=== PATIENT | female | born 1970 | race Caucasian/White ===

== ENCOUNTER 2024-10-17 12:05 | Emergency (ER) | payer OTHER, SELFPAY ==
[2024-10-17 12:10] VITALS: BP 123/83; PULSE 75; TEMP 36.6; O2SAT 97; BMI 26.6
[2024-10-17 12:23] VITALS: O2SAT 99
--- NOTE | 2024-10-17 12:35 | ED.GENADUL1 ---
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 She is somewhat not very forthcoming with providing much history but she endorses this was low impact at approximately 4 to 5 mph. She denies hitting her head or any LOC. She endorses since then she has had pain to the lateral side of her left neck and mid upper back. Endorses at baseline she does have some paresthesias to her upper extremities that she attributes to carpal tunnel syndrome. She denies any new injuries to her extremities, weakness, loss of movement. She additionally denies any saddle anesthesia or concerns with bowel/bladder function. She mention she has intermittently been taking Tylenol and ibuprofen. Related Data Home Medications ?Medication ?Instructions ?Recorded ?Confirmed No Known Home Medications 10/17/24 10/17/24 Allergies Allergy/AdvReac Type Severity Reaction Status Date / Time Penicillins Allergy Severe Hives Verified 10/17/24 12:14 Opioid HPI Opioid Management Most Recent Opioid Data: Last Pain Scale 8 Today, 12:22 Review of Systems ROS Status of ROS 10 or more systems reviewed and unremarkable except as noted in history and below PFSH PFSH Social History Little interest or pleasure in doing things: not at all Feeling down, depressed, or hopeless: not at all Exam Narrative Exam Narrative: Constituational: Awake/ alert, no apparent distress, well hydrated HENMT: normocephalic, external ears normal, moist oral mucous membranes and oropharynx normal Eyes: EOMI and conjunctivae normal Neck: ROM intact, mild discomfort to lateral left cervical region, otherwise normal inspection of neck, no vertebral tenderness Chest: inspection of chest normal Respiratory: Normal respiratory effort, clear to auscultation bilaterally Cardio: regular rate and regular rhythm GI: soft to palpation and non-tender Back: + Mild discomfort with palpation over mid/upper paravertebral thoracic region, otherwise no vertebral tenderness and normal inspection of back with ROM intact MSK: ROM intact, +NVI Skin: no rashes or petechiae Neuro: no focal deficits Psych: mental status grossly normal Constitutional Vital Signs, click to edit/add: Last Vital Signs Temp 98 F 10/17/24 12:10 Pulse 75 10/17/24 12:10 Resp 16 10/17/24 12:10 BP 123/83 10/17/24 12:10 Pulse Ox 99 10/17/24 12:23 O2 Del Method Room Air 10/17/24 12:23 Course Vital Signs Vital signs: Vital Signs Temperature 98 F 10/17/24 12:10 Pulse Rate 75 10/17/24 12:10 Respiratory Rate 16 10/17/24 12:10 Blood Pressure 123/83 10/17/24 12:10 Pulse Oximetry 97 10/17/24 12:10 Oxygen Delivery Method Room Air 10/17/24 12:10 Temperature 98 F 10/17/24 12:10 Pulse Rate 75 10/17/24 12:10 Respiratory Rate 16 10/17/24 12:10 Blood Pressure 123/83 10/17/24 12:10 Pulse Oximetry 99 10/17/24 12:23 Oxygen Delivery Method Room Air 10/17/24 12:23 Medical Decision Making MDM Narrative Medical decision making narrative: Patient is a well-appearing 54-year-old female who presents to the emergency department today for evaluation concerns for injuries after colliding with another forklift at work yesterday. Initial examination vital signs overall stable. Patient's pain does seem somewhat malingering as she is fully dressed with undergarments on and her hair in a high bun on her head however did inform nursing that she is unwilling to get undressed for x-ray imaging including removing her brassiere due to her pain. On exam she does not appear to be in any acute distress and overall pain appreciated on exam is very minimal and mild. No concerning neurovascular or motor findings on exam. Pain of cervical and thoracic spine without critical findings per ER interpretation and reviewed with the ER attending physician Dr. Lazo. Discussed this with the patient including recommendations for supportive care of possible cervical and thoracic strains. No evidence of acute radiculopathy. Advised on follow-up with patient's primary care provider and occupational health for reevaluation. Discussed signs and symptoms of any worsening condition and when to consider reevaluation by the emergency department. Patient verbalized an understanding of this and is agreeable with the plan to be discharged home. Medical Records Medical records reviewed: Yes I reviewed the patient's medical records Imaging Data XR neck: Attestation: I personally reviewed and interpreted this imaging study as follows: My impression: Degenerative changes, no fracture XR thoracic spine: Attestation: I personally reviewed and interpreted this imaging study as follows: My impression: Degenerative changes, no fracture Discharge Plan Discharge Chief Complaint: Back Pain/Injury Clinical Impression: Cervical muscle strain, Strain of thoracic region Patient Disposition: Home, Self-Care Prescriptions / Home Meds: No Action No Known Home Medications Print Language: Lithuanian Instructions: Cervical Strain (DC), Muscle Strain (DC) Additional Instructions: May alternate Tylenol and ibuprofen as needed for any pain. Rest, ice any sore areas. Please follow-up with occupational health for reevaluation as discussed. Referrals: CINDY ABBOTT [Primary Care Provider, Family Practice] - 1 week
== END 2024-10-17 15:15 | disposition home or self-care (01) ==
PROVIDERS: Emergency Provider Emergency Medicine; PCP Family Medicine
DX: S16.1XXA Strain of muscle, fascia and tendon at neck level, initial encounter (principal); S29.012A Strain of muscle and tendon of back wall of thorax, initial encounter; V83.5XXA Driver of special industrial vehicle injured in nontraffic accident, initial encounter
CPT/HCPCS: 72040; 72072; 99283

== ENCOUNTER 2025-03-03 07:58 | Emergency (ER) | payer OTHER, SELFPAY ==
--- OUTSIDE RECORDS SUMMARY | 2025-02-24 08:39 | XMS_ITS | Continuity of Care Document ---
Author Organization [facility] Address [address] [place] [address] Phone Care Team Providers Care Music Mixer Name Role Phone Theodora Camacho APRN Attending Provider NON STAFF Primary Care Provider Unavailabl e Care Teams Patient Care Team Team Status: Active Member Role Status Dates NON STAFF Primary Care Provider Active Patient Care Team Team Status: Inactive Member Role Status Dates Theodora Camacho APRN Attending Provider Active Start: February 24, 2025 End: February 24, 2025NON STAFFPrimary Care ProviderActiveStart: February 24, 2025 End: February 24, 2025 Chief Complaint and Reason for Visit Chief Complaint Admit Date sore throat, body aches, chills February 24, 2025 11:51am Allergies, Adverse Reactions, Alerts Allergen Type Severity Reaction Last Updated Verified Status Penicillins Allergy Unknown Unknown Reaction February 24, 2025 12:02pm Yes Active Social History Smoking Status Status Start Date End Date Date of Observa tion Never smoked tobacco (finding) February 24, 2025 12:04pm Observation Status Observation Response Date of Response Legal Sex [facility] (finding) [facility] Family History Relationship Condition Age at Onset Recorded Date/T wilda father Chronic obstructive pulmonary disease Unk nown Cerebrovascular accident (CVA)Unknown Medications No known medications Vital Signs Vital Reading Result Reference Range Collection Date/Time Height 66 [in_i] February 24, 2025 12:19ihSgvfhj38.71 [facility] 2024 12:08pmBody Bligbdlcvlz40.8 [degF]97.6-99.0October 2024 12:08pmHeart Rate72 /sbd81-691 February 24, 2025 12:08pmRespiratory rate18 /lhl29-89Eynxggc 2024 12:08pm Oxygen saturation by Pulse %95-100October 2024 12:08pmBP Dyfczbwy824 mm[Hg]100-140[facility] 2024 12:08pmBP Seciewnjq95 mm[Hg]60-100 February 24, 2025 12:08pmBMI (Body Mass Index)32.3 kg/i7Fdkezxd 2024 12:08pm Advance Directives Advance Directive Response Recorded Date/ Time Advance Directives No February 24, 2025 11:49am Insurance Providers Guarantor Rehana Obregon Address [address] [facility] [address]Uqxgwdx Info.Home Phone: Payer Policy Id Subscriber's Name Subscriber Id Effectiv e Date Expiration Date [employer] [id number] Rehana Obregon [id number] Encounters Encounter Location(s) Arrival/Admit Date Discharge/Depart Date Provider(s) Departed Physician/Prov ider Office Visit -[facility] February 24, 2025 11:51am February 24, 2025 12:37pm Yen Lala MACHINE CLOTHING MAN Plan of Treatment Future Tests Future scheduled test information is unavailable Pending Tests Pending diagnostic test information is unavailable Future Visits Future appointment information is unavailable Referrals to Other Providers Referral information is unavailable Future Procedures Procedure Name Ordered Date Scheduled Date AMB POC Quick Strep February 24, 2025 12:07pm Future Medications Future medication information is unavailable Patient Instructions Patient instructions are unavailable
--- OUTSIDE RECORDS SUMMARY | 2025-03-03 08:03 | XMS_ITS | Clinical Summary ---
Author Organization [employer] [facility] tem Address [id number] [place] [address] Care Team Providers Care Sustainable Agriculture Specialist Name Role Phone No Pcp, No Pcp Primary Care Provider Unavailabl e Allergies Active AllergyReactionsCriticalityNoted DateCommentsPenicillin G Sodium 11/20/2022 Other Reaction(s): Unknown Medications No known medications Social History Tobacco UseTypesPacks/DayYears UsedDateSmoking Tobacco: Never AssessedChildcare AnswerDate OfjtoftqZhwfeirqyLuvesci49/12/2019EmploymentAnswerDate Recorded AbuupazprcTwtowsw93/12/2019Hunger ScreeningAnswerDate RecordedWithin the past 12 months we worried whether our food would run out before we got money to buy more.Never True08/03/2023Within the past 12 months the food we bought just didn't last and we didn't have money to get more.Never True08/03/2023 CommentsNoSex and Gender InformationValueDate RecordedSex Assigned at BirthNot on fileLegal NvnRimyxw55/06/2015 11:43 AM EDTGender IdentityNot on fileSexual OrientationNot on file Last Filed Vital Signs Vital SignReadingTime TakenCommentsBlood Sscxpfnx892/8103 3:17 AM EDT Ayajy9317 3:17 AM WNWEqgrygsntrj93 ??C (98.6 ??F)08/03/2023 3:17 AM EDT Respiratory Qytq071708/03/2023 3:17 AM EDTOxygen Geagedjhnr63%08/03/2023 3:17 AM EDTInhaled Oxygen Concentration--Stputi26 kg (205 lb)08/03/2023 3:17 AM EDT Giddof469.6 cm (5' 6 )08/03/2023 3:17 AM EDTBody Mass Index33.0908/03/2023 3:17 AM EDT Plan of Treatment Not on file Medical Devices Not on file Insurance Care Teams Team MemberRelationshipSpecialtyStart DateEnd Date No Pcp, [place] [id number] PCP - GeneralFadely Medicine08/03/23
--- OUTSIDE RECORDS SUMMARY | 2025-03-03 08:03 | XMS_ITS | Clinical Summary ---
Author Organization [facility] Address [address] [place] [address] Care Team Providers Care Oyster Shipper Name Role Phone Jason Waite MD Primary Care Provider [phone] Allergies Active AllergyReactionsCriticalityNoted DateCommentsPenicillin G Sodium 11/20/2022 Other Reaction(s): Unknown Medications No known medications Family History Medical HistoryRelationNameCommentsBreast cancerMother's SisterBreast cancer SisterCervical cancerSisterRelationNameStatusCommentsMother's SisterSister Social History Tobacco UseTypesPacks/DayYears UsedDateSmoking Tobacco: NeverSmokeless Tobacco: Never Tobacco Cessation:Counseling Given: Not Answered Alcohol UseStandard Drinks/WeekCommentsNot Currently0 (1 standard drink = 0.6 oz pure alcohol)CommentsUnknownSex and Gender InformationValueDate Recorded Sex Assigned at BirthNot on fileLegal PizLbadgh12/15/2023 8:23 PM EDTGender IdentityNot on fileSexual OrientationNot on file Last Filed Vital Signs Vital SignReadingTime TakenCommentsBlood Maulcdgs519/8207 2:35 PM EDT Pulse--Temperature--Respiratory Rate--Oxygen Saturation--Inhaled Oxygen Concentration--Bloiyb85.7 kg (189 lb)11/20/2022 2:35 PM SXLLbxdbx248.3 cm (5' 3.5 )11/20/2022 2:35 PM EDTBody Mass Index32.9507 2:35 PM EDT Plan of Treatment Not on file Insurance Care Teams Team MemberRelationshipSpecialtyStart DateEnd Jason Waite MD PCP - GeneralFamily Medicine11/20/22
[2025-03-03 08:05] VITALS: BP 131/83; PULSE 64; TEMP 36.8; O2SAT 100; BMI 32.3
--- NOTE | 2025-03-03 08:18 | XR_ITS ---
[place] [id number] Patient Name: LISSET CONWAY MRN: [id number] date: 1970 Sex: F Assigned Patient Location: ER Current Patient Location: ED.MAIN Accession/Order Number: [id number] Exam Date: 03/03/2025 08:28 Report Date: 03/03/2025 08:57 At the request of: OSWALDO WAGNER MD Procedure: XR chest 1V PORTABLE AP ERECT CHEST 0815 hours CLINICAL HISTORY: Cough and sore throat for several days COMPARISON: Thoracic spine 10/17/2024 The heart is within normal limits. There is no vascular congestion. No consolidation is seen. There is no effusion or pneumothorax. The osseous structures are intact. There is slight dextroscoliotic curvature and tiny endplate spurs. XR/XR chest 1V IMPRESSION: NO ACUTE FINDINGS Impression dictated by: Adela Valencia M.D. 03/03/2025 8:57 AM Dictation Location: [place] [address] Electronically authenticated by: [id number] Y Date: 03/03/2025 08:57
--- NOTE | 2025-03-03 08:18 | ED.GENADUL1 ---
HPI HPI - General Adult General Chief complaint: Upper Respiratory Infection Stated complaint: SORE THROAT Time Seen by Provider: 03/03/25 08:00 Source: patient Mode of arrival: walk-in History of Present Illness HPI narrative: 54-year-old female presented to the emergency department for a cough. She feels like it is in her throat. 10 days ago her boyfriend was cutting pavers and she had inhaled some of the dust. She was not wearing a mask. Her cough is nonproductive. No hemoptysis or fever. She went to urgent care and they told her she had haur-yrza-jtm-mouth disease. She has not had a rash on her hands or feet. Related Data Previous Rx's ?Medication ?Instructions ?Recorded benzonatate 100 mg capsule 100 mg PO TID PRN cough #20 caps 03/03/25 prednisone 10 mg tablet See Rx Instructions .Route 03/03/25 .COMPLEX #30 tabs Allergies Allergy/AdvReac Type Severity Reaction Status Date / Time Penicillins Allergy Severe Hives Verified 03/03/25 08:05 Opioid HPI Opioid Management Most Recent Opioid Data: Last Pain Scale 10 Today, 08:18 Review of Systems ROS Narrative A ten point review of systems is negative except as noted above. PFSH PFSH Social History Little interest or pleasure in doing things: not at all Feeling down, depressed, or hopeless: not at all Exam Narrative Exam Narrative: Nurses note and vital signs reviewed General:The patient appears well and in no apparent distress.Patient is resting comfortably on cart. Skin:Warm, dry, no pallor noted.There is no rash noted. Head:Normocephalic, atraumatic Eye: Normal conjunctiva, no drainage Ears, Nose, Mouth, and Throat: oral mucosa is moist. Nares patent. No pharyngeal erythema. No exudate Cardiovascular:Regular Rate and Rhythm Respiratory:Patient is in no distress, no accessory muscle use, lungs are clear to auscultation, no wheezing, rales or rhonchi Back:non-tender GI: Soft and nontender Musculoskeletal: No joint swelling Neurological: Awake and alert Psychiatric:Cooperative Constitutional Vital Signs, click to edit/add: Last Vital Signs Temp 98.3 F 03/03/25 08:05 Pulse 64 03/03/25 08:05 Resp 16 03/03/25 08:05 BP 131/83 03/03/25 08:05 Pulse Ox 100 03/03/25 08:05 O2 Del Method Room Air 03/03/25 08:05 Course Vital Signs Vital signs: Vital Signs Temperature 98.3 F 03/03/25 08:05 Pulse Rate 64 03/03/25 08:05 Respiratory Rate 16 03/03/25 08:05 Blood Pressure 131/83 03/03/25 08:05 Pulse Oximetry 100 03/03/25 08:05 Oxygen Delivery Method Room Air 03/03/25 08:05 Temperature 98.3 F 03/03/25 08:05 Pulse Rate 64 03/03/25 08:05 Respiratory Rate 16 03/03/25 08:05 Blood Pressure 131/83 03/03/25 08:05 Pulse Oximetry 100 03/03/25 08:05 Oxygen Delivery Method Room Air 03/03/25 08:05 Medical Decision Making MDM Narrative Medical decision making narrative: Strep test is negative. She was offered COVID and influenza test but does not feel that she needs them. Chest x-ray my interpretation showed no acute findings. Should be placed on prednisone and Tessalon. I suspect her symptoms may be due to the inhaled dust that she experienced just before the symptoms started. Treatment diagnosis and follow-up were discussed with the patient. Differential Diagnosis Differential Diagnosis: Strep throat, pneumonia, viral URI Lab Data Lab results reviewed: Yes I reviewed the patient's lab results Labs: Lab Results 03/03/25 Range/Units 08:16 Streptococcus Screen Negative Imaging Data Chest x-ray: My impression: No acute findings Discharge Plan Discharge Chief Complaint: Upper Respiratory Infection Clinical Impression: Pneumonitis Patient Disposition: Home, Self-Care Time of Disposition Decision: 08:49 Condition: Good Mode of Transportation: Private Vehicle Prescriptions / Home Meds: New benzonatate 100 mg capsule 100 mg PO TID PRN (Reason: cough) Qty: 20 0RF prednisone 10 mg tablet See Rx Instructions .ROUTE .COMPLEX Qty: 30 0RF Rx Instructions: 4 by mouth daily for three days then 3 by mouth daily for three days then 2 by mouth daily for three days then 1 by mouth daily for three days Print Language: Greenlandic Instructions: How Your Lungs Work (ED) Referrals: Physician,Non-Staff, MD [Primary Care Provider] - 1 week
== END 2025-03-03 09:07 | disposition home or self-care (01) ==
PROVIDERS: Emergency Provider Emergency Medicine
DX: J98.4 Other disorders of lung (principal)
CPT/HCPCS: 71045; 87070; 87880; 99284

== ENCOUNTER 2025-04-16 12:25 | Outpatient (OUT) | payer OTHER, SELFPAY ==
--- OUTSIDE RECORDS SUMMARY | 2025-04-15 07:02 | XMS_ITS | Continuity of Care Document ---
Author Organization [facility] Address [address] [place] [address] Phone Care Team Providers Care Manager Managing Name Role Phone Theodora Camacho APRN Attending Provider NON STAFF Primary Care Provider Unavailabl e Radha, Cheryl DO Primary Care Provider [phone] Radha, Cheryl DO Attending Provider Care Teams Patient Care Team Team Status: Active Member Role/Relationship Status Dates Cheryl Garcia DO Primary Care Provider Active Visit Care Team Team Status: Inactive Member Role/Relationship Status Dates Theodora Camacho APRN Attending Provider Active Start: February 24, 2025 End: February 24, 2025NON STAFFPrimary Care ProviderActiveStart: February 24, 2025 End: February 24, 2025 Patient Care Team Team Status: Inactive Member Role/Relationship Status Dates Cheryl Garcia DO Primary Care Provider Active S tart: April 15, 2025 End: April 15, 2025Jedinora Garcia DOAttending ProviderActiveStart: April 15, 2025 End: April 15, 2025 Chief Complaint and Reason for Visit Chief Complaint Admit Date sore throat, body aches, chills February 24, 2025 11:51am Wellness Check April 15, 2025 1 1:23am Reason for Visit Admit Date Viral pharyngitis February 24, 2025 1 1:51am GERD with esophagitis April 15, 2025 11:23am Throat pain April 15, 2025 1 1:23am Wellness examination April 15, 2025 11:23am Allergies, Adverse Reactions, Alerts Allergen Type Severity Reaction Last Updated Verified Status Penicillins Allergy Unknown Unknown Reaction Decesierra [place] r 2024 11:27am Yes Active Social History Smoking Status Status Start Date End Date Date of Observa tion Never smoked tobacco (finding) February 24, 2025 12:04pm Observation Status Observation Response Date of Response Legal Sex [facility] (finding) [facility] 1970 Family History Relationship Condition Age at Onset Recorded Date/T wilda father Chronic obstructive pulmonary disease Unk nown Cerebrovascular accident (CVA)UnknownHeart diseaseUnknownMyocardial infarction UnknownHigh blood cholesterolUnknownHypertensionUnknownsisterMalignant neoplasm UnknownbrotherCerebrovascular accident (CVA)UnknownMyocardial infarctionUnknown Problems Active Problems Problem Diagnosis/Recorded Date Onset Date Stat us GERD with esophagitis April 15, 2025 11:53am Unkno wn Active Throat pain April 15, 2025 11:52am Unknown A ctive Wellness examination April 15, 2025 11:53am Unknow n Active Viral pharyngitis February 24, 2025 12:15pm Unknown Active Medications Medication Status Dose Units Route Directions Qty Days Refills S tart Date Stop Date End Date Reason(s) Instructions Adherence Pantoprazole (Protonix) 40 m g tablet,delayed release (DR/EC) Active 40 MG PO Daily 30 0Dece2024 12:00amComplies with drug therapy Vital Signs Vital Reading Result Reference Range Collection Date/Time Height 66 [in_i] February 24, 2025 11:45piXbcfct51.71 [facility] 2024 11:08amBody Ytmmhfeaktk81.8 [degF]97.6-99.0[facility] 2024 11:08amHeart Rate72 /cou25-032 February 24, 2025 11:08amRespiratory rate18 /oow86-74Tzpbssx 2024 11:08am Oxygen saturation by Pulse puhxmfla55 %95-100[facility] 2024 11:08amBP Psmruknr037 mm[Hg]100-140[facility] 2024 11:08amBP Opfyljjvy59 mm[Hg]60-100 February 24, 2025 11:08amBMI (Body Mass Index)32.3 kg/o4Qzcvxtb 2024 11:54cjVuzbgu40 [in_i]April 15, 2025 11:69jzVsnzte24.27 kgDecesummit healthcare regional medical center 2024 11:26amHeart Rate88 /fjh34-811Udcjihya 4th, 2025 11:26amRespiratory rate16 /min 12-24April 15, 2025 11:26amOxygen saturation by Pulse vklylfim36 %95-100 April 15, 2025 11:26amBP Iaitytic140 mm[Hg]100-140Dece2024 11:26am BP Zfhvrcvhg52 mm[Hg]60-100Dece2024 11:26amBMI (Body Mass Index)30.3 kg/s5YqqowhqrApril 15, 2025 11:26am Advance Directives Advance Directive Response Recorded Date/ Time Advance Directives No February 24, 2025 10:49am Insurance Providers Guarantor Rehanatomás Obregon Address [address] [facility] [address]Xktxfjn Info.Home Phone: Coverage Status Update:2025 Payer Group Member ID Coverage Type Subscriber Relationship to Subscriber Effective Date Expiration Date [employer] [id number] Gordon Id: [id number] [address] [facility] [address] Home Phone: Self Encounters Encounter Location(s) Arrival/Admit Date Discharge/Departure Date Discharge/Departure Disposition Provider(s) Departed Physician/ Provider Office Visit -[facility] [place] February 24, 2025 11:51am February 24, 2025 12:37pm Discharged to home care or self care (routine discharge) Yen Lala APRN Departed Physician/ Provider Office Visit -[facility] [place] April 15, 2025 11:23am April 15, 2025 12:02pm Discharged to home care or self care (routine discharge) Cheryl Garcia DO Recent Diagnosis Onset Date Admit Date Viral pharyngitis Unknown February 24, 2025 11:51am GERD with esophagitis Unknown April 152024 11:23am Throat pain Unknown April 15 11:23am Wellness examination Unknown April 11:23am Assessments Diagnosis Onset Date Resolution Status Admit Date Viral pharyngitis acuteOct2024 11:51amGERD with esophagitisacuteDece2024 11:23amThroat painacuteDece2024 11:23amWellness examinationacute April 15, 2025 11:23am Plan of Treatment Author Theod[facility]acho [facility] 12:16pmDiscussed differential of herpangina versus start of hand-foot mouth. No current rash. Discussed signs and symptoms to look out for. Discussed contagious nature, viral nature and typical duration. Fluids and rest encouraged. May alternate Tylenol and ibuprofen. May use topical throat sprays or throat lozenges. Follow-up with PCP if not gradually improving over the next week, sooner if significantly worsening. Patient verbalized understanding. Future Tests Future scheduled test information is unavailable Pending Tests Test Name Ordered Date Scheduled Date Comprehensive Metabolic Panel April 15, 2025 11:53am Future Visits Future appointment information is unavailable Future Procedures Procedure Name Ordered Date Scheduled Date A1C with Estimated Average Glu April 15 11:53am Complete Blood Count Auto DiffDecemb 2024 11:53amLipid PanelDece2024 11:53amThyroid Stimulating HormoneDecesummit healthcare regional medical center 2024 11:53am Future Medications Future medication information is unavailable Patient Instructions Patient instructions are unavailable
[2025-04-16 12:55] LABS: Hematocrit 26.9 % (36.0-48.0); Hemoglobin 8.9 g/dL (12.0-16.0); Mean Corpuscular HGB Conc 33.1 g/dL (29.9-35.2); Mean Corpuscular Hemoglobin 35.0 pg (26.7-34.0); Mean Corpuscular Volume 105.9 fL (81.0-99.0); Platelet Count 129 10^3/uL (150-450); Red Blood Count 2.54 10^6/uL (4.20-5.40); White Blood Count 5.8 10^3/uL (4.0-11.0)
[2025-04-16 15:31] LABS: Alanine Aminotransferase 33 U/L (14-59); Albumin Globulin Ratio 1.0; Albumin Level 3.6 g/dL (3.4-5.0); Alkaline Phosphatase 80 U/L (46-116); Anion Gap 9.4; Aspartate Amino Transferase 20 U/L (15-37); Blood Urea Nitrogen 13.0 mg/dL (7.0-18.0); Calcium 9.0 mg/dL (8.5-10.1); Carbon Dioxide 30.3 mmol/L (21.0-32.0); Chloride 106 mmol/L (98-107); Cholesterol 138 mg/dL (<=200); Estimated GFR (African America >60 (>=60 mL/min/1.73m^2); Estimated GFR (Non-African Ame >60 (>=60 mL/min/1.73m^2); Globulin 3.7 g/dL; Glucose 95 mg/dL (74-106); HDL Cholesterol 48 mg/dL (40-60); Potassium 3.7 mmol/L (3.5-5.1); Sodium 142 mmol/L (136-145); Thyroid Stimulating Hormone 2.300 uIU/mL (0.358-3.740); Total Protein 7.3 g/dL (6.4-8.2); Triglycerides 59 mg/dL (<=150); VLDL CHOLESTEROL 11.8 mg/dL
== END 2025-04-16 12:26 | disposition home or self-care (01) ==
LOC: LAB 12:27
PROVIDERS: PCP Family Medicine; Visit Provider Family Medicine
DX: Z00.00 Encounter for general adult medical examination without abnormal findings (principal)
CPT/HCPCS: 36415; 80053; 80061; 83036; 84443; 85007; 85027

== ENCOUNTER 2025-04-23 14:34 | Outpatient (OUT) | payer OTHER, SELFPAY ==
--- OUTSIDE RECORDS SUMMARY | 2025-04-16 19:29 | XMS_ITS | Continuity of Care Document ---
Author Organization [facility] Address [address] [place] [address] Phone Care Team Providers Care Journalism Professor Name Role Phone Theodora Camacho APRN Attending Provider NON STAFF Primary Care Provider Unavailabl e Radha, Cheryl DO Primary Care Provider [phone] Radha, Cheryl DO Attending Provider Care Teams Patient Care Team Team Status: Active Member Role/Relationship Status Dates Cheryl Prabhakarp DO Primary Care Provider Active Visit Care Team Team Status: Inactive Member Role/Relationship Status Dates Theodora Camacho APRN Attending Provider Active Start: February 24, 2025 End: February 24, 2025NON STAFFPrimary Care ProviderActiveStart: February 24, 2025 End: February 24, 2025 Visit Care Team Team Status: Inactive Member Role/Relationship Status Dates Cheryl Radha , DO Primary Care Provider Active S tart: April 15, 2025 End: April 15, 2025Jessica Radha , DOAttending ProviderActiveStart: April 15, 2025 End: April 15, 2025 Patient Care Team Team Status: Active Member Role/Relationship Status Dates Cheryl Radha , DO Primary Care Provider Active S tart: April 16, 2025 Cheryl Radha , DOAttending ProviderActiveStart: April 16, 2025 Chief Complaint and Reason for Visit Chief Complaint Admit Date sore throat, body aches, chills February 24, 2025 11:51am Wellness Check April 15, 2025 1 1:23am Reason for Visit Admit Date Viral pharyngitis February 24, 2025 1 1:51am GERD with esophagitis April 15, 2025 11:23am Throat pain April 15, 2025 1 1:23am Allergies, Adverse Reactions, Alerts Allergen Type Severity Reaction Last Updated Verified Status Penicillins Allergy Unknown Unknown Reaction Decembe r 2024 11:27am Yes Active Social History Smoking Status Status Start Date End Date Date of Observa tion Never smoked tobacco (finding) February 24, 2025 12:04pm Observation Status Observation Response Date of Response Legal Sex [facility] (finding) [facility] Family History Relationship Condition Age at Onset Recorded Date/T wilda father Chronic obstructive pulmonary disease Unk nown Cerebrovascular accident (CVA)UnknownHeart diseaseUnknownMyocardial infarction UnknownHigh blood cholesterolUnknownHypertensionUnknownsisterMalignant neoplasm UnknownbrotherCerebrovascular accident (CVA)UnknownMyocardial infarctionUnknown Problems Active Problems Problem Diagnosis/Recorded Date Onset Date Stat GERD with esophagitis April 15, 2025 11:53am [...] (DR/EC) Active 40 MG PO Daily 30 0April 15, 2025 12:00amUnknown Relevant Diagnostic Tests and/or Laboratory Data Laboratory Results Test Collection Date/Time Result Date/Time Result Interpretation Reference Range Result Comment Performing Site Thyroid Stimulating Hormone April 16, 2025 12:36pm April 16, 2025 12:36pm 2.300 u[iU]/mL 0.358-3.740Cholesterol/HDL RatioApril 16, 2025 12:36pm2024 12:36pm2.93.3 - 4.4 LOW RISK4.4 - 7.1 AVERAGE RISK7.1 - 11.0 MODERATE RISK>11.0 HIGH RISKAnion GapApril 16, 2025 12:36pmApril 16, 2025 12:36pm9.4 Estimated Average GlucoseApril 16, 2025 12:36pmApril 16, 2025 12:71uz920 mg/dLHematocritDece2024 12:36pmDecemb2024 12:36pm26.9 %Below low sfqzyv71.0-48.0Cholesterol LevelApril 16, 2025 12:36pmDecemb2024 12:17bk838 mg/dL<=200Albumin/Globulin RatioApril 16, 2025 12:36pmDecemb2024 12:36pm1.0Hemoglobin H2cJlgdjeuyApril 16, 2025 12:36pmce2024 12:36pm5.4 %4.5-6.2ADA RECOMMENDED LIMIT 4.0 - 6.0ADA THERAPEUTIC TARGET < 7.0ACTION SUGGESTED> 7.0HemoglobinApril 16, 2025 12:36pmDece2024 12:36pm8.9 g/dLBelow low .0-16.0HDL CholesterolApril 16, 2025 12:36pmApril 16, 2025 12:36pm48 mg/dL40-60> or =60 mg/dl - LOW CARDIOVASCULAR RISK<40 mg/dl - HIGH CARDIOVASCULAR RISKAlbuminApril 16, 2025 12:36pmDece2024 12:36pm3.6 g/dL3.4-5.0Mean Corpuscular Hemoglobin April 16, 2025 12:36pmDece2024 12:36pm35.0 pgAbove high normal 26.7-34.0LDL Cholesterol, CalculatedApril 16, 2025 12:36pmDece2024 12:36pm78.2 mg/dL<100 mg/dl GWDUFMX451-442 mg/dl NEAR OR ABOVE UBAOOQN558-078 mg/dl BORDERLINE UPFT442-514 mg/dl HIGH>190 mg/dl VERY HIGHAlkaline Phosphatase April 16, 2025 12:36pmDece2024 12:36pm80 U/S86-510Mxcd Corpuscular Hemoglobin Concent2024 12:36pmDecemb2024 12:36pm33.1 g/dL 29.9-35.2Triglycerides LevelApril 16, 2025 12:36pmDecemb2024 12:36pm 59 mg/dL<=150Alanine Aminotransferase (ALT/SGPT)April 16, 2025 12:36pm April 16, 2025 12:36pm33 U/M05-41Cxzb Corpuscular VolumeApril 16, 2025 12:36pmDece2024 12:43dc727.9 fLAbove high .0-99.0VLDL CholesterolApril 16, 2025 12:36pmDece2024 12:36pm11.8 mg/dL Aspartate Amino Transf (AST/SGOT)April 16, 2025 12:36pmApril 16, 2025 12:36pm20 U/I83-48Qnpw Platelet VolumeApril 16, 2025 12:36pmDe2024 12:36pm8.1 fLBelow low normal9.5-13.5BUN/Creatinine RatioApril 16, 2025 12:36pmApril 16, 2025 12:36pm16.9Platelet CountApril 16, 2025 12:36pm April 16, 2025 12:67df110 10 3/uLBelow low oagqhv483-802Ppohr Urea Nitrogen April 16, 2025 12:36pmce2024 12:36pm13.0 mg/dL7.0-18.0Red Blood CountApril 16, 2025 12:36pmce2024 12:36pm2.54 10 6/uLBelow low normal4.20-5.40Calcium LevelApril 16, 2025 12:36pmDece2024 12:36pm 9.0 mg/dL8.5-10.1Red Cell Distribution WidthApril 16, 2025 12:36pmApril 16, 2025 12:36pm13.9 %11.0-15.0Chloride LevelApril 16, 2025 12:36pmce2024 12:10sg585 mmol/J11-811Zisazpujn White Blood CountApril 16, 2025 12:36pmDecember 2024 12:36pm5.8 10 3/uL4.0-11.0Carbon Dioxide LevelDece2024 12:36pmDecemb2024 12:36pm30.3 mmol/L21.0-32.0Creatinine April 16, 2025 12:36pmDecember 2024 12:36pm0.77 mg/dL0.55-1.02Estimated GFR ()April 16, 2025 12:36pmDecemb2024 12:36pm>60 >=60 mL/min/1.73m 2Estimated GFR (Non- AmericanDece2024 12:36pm April 16, 2025 12:36pm>60>=60 mL/min/1.73m 2GlobulinDece2024 12:36pmDecember 2024 12:36pm3.7 g/dLGlucose LevelDece2024 12:36pm April 16, 2025 12:36pm95 mg/hD02-393Vzzrbkojw LevelDece2024 12:36pmDecember 2024 12:36pm3.7 mmol/L3.5-5.1Sodium LevelDece2024 12:36pmDecember 2024 12:05ve992 mmol/P122-512Neocg BilirubinDece2024 12:36pmDecemb2024 12:36pm0.7 mg/dL0.2-1.0Total ProteinDece2024 12:36pmDecember 2024 12:36pm7.3 g/dL6.4-8.2 Vital Signs Vital Reading Result Reference Range Collection Date/Time Height 66 [in_i] February 24, 2025 11:11oeMorgck50.71 kgOct2024 11:08amBody Utzvdnrgjwx02.8 [degF]97.6-99.0October 2024 11:08amHeart Rate72 /bge84-503 February 24, 2025 11:08amRespiratory rate18 /sda17-43Odrmmvk 2024 11:08am Oxygen saturation by Pulse fwmdopgj84 %95-100[facility] 2024 11:08amBP Nikbpkra486 mm[Hg]100-140[facility] 2024 11:08amBP Lzcfihrtk75 mm[Hg]60-100 February 24, 2025 11:08amBMI (Body Mass Index)32.3 kg/h4Hdwnfub 2024 11:10viSrteeq32 [in_i]April 15, 2025 11:08ldWelyoj74.27 kgDeceer 2024 11:26amHeart Rate88 /cbe20-840Cwnuokec 2024 11:26amRespiratory rate16 /min 12-24Dece2024 11:26amOxygen saturation by Pulse byxzlkie98 %95-100 April 15, 2025 11:26amBP Aaesswvw569 mm[Hg]100-140[facility] 2024 11:26am BP Roudbpuhs76 mm[Hg]60-100Decedignity [facility] 2024 11:26amBMI (Body Mass Index)30.3 kg/j5Aixnffrh 2024 11:26am Advance Directives Advance Directive Response Recorded Date/ Time Advance Directives No February 24, 2025 10:49am Insurance Providers Guarantor Rehana Obregon Address [address] [facility] [address]Wtyjlds Info.Home Phone: Coverage Status Update:2025 Payer Group Member ID Coverage Type Subscriber Relationship to Subscriber Effective Date Expiration Date [facility] [id number] Gordon Id: [id number] [address] [facility] [address] Home Phone: Self Encounters Encounter Location(s) Arrival/Admit Date Discharge/Departure Date Discharge/Departure Disposition Provider(s) Departed Physician/ Provider Office Visit -[facility] [place] February 24, 2025 11:51am February 24, 2025 12:37pm Discharged to home care or self care (routine discharge) Yen Lala APRN Departed Physician/ Provider Office Visit -[facility] [place] April 15, 2025 11:23am April 15, 2025 12:02pm Discharged to home care or self care (routine discharge) Cheryl Garcia DO Non-patient / Non-visit -[facility] 2024 12:36pm Cheryl Garcia DO Recent Diagnosis Onset Date Admit Date Viral pharyngitis Unknown February 24, 2025 11:51am GERD with esophagitis Unknown April 152024 11:23am Throat pain Unknown April 15 11:23am Assessments Diagnosis Onset Date Resolution Status Admit Date Viral pharyngitis acuteOctober 2024 11:51amGERD with esophagitisacuteDecember 2024 11:23amThroat painacuteDece2024 11:23am Plan of Treatment Author Theodora Camacho [facility] 2024 12:16pmDiscussed differential of herpangina versus start [...] sooner if significantly worsening. Patient verbalized understanding. Author Cheryl Garcia [facility] 2024 12:09pmCould be related to GERD, #1, or thyroid. Check TSH. Consider thyroid work up/ ultrasound if protonix does not work. Will place on protonix 40mg daily x 2 weeks; will get fasting labs. Avoid caffeine, mint, spice and chocolate. Try not eating before bed. have labs done, return to clinic 1 month or sooner if needed. Future Tests Future scheduled test information is unavailable Pending Tests Test Name Ordered Date Scheduled Date Comprehensive Metabolic Panel April 15, 2025 11:53am Future Visits Future appointment information is unavailable Future Procedures Procedure Name Ordered Date Scheduled Date Lipid Panel April 15, 2025 11:53am Future Medications Future medication information is unavailable Patient Instructions Patient instructions are unavailable
[2025-04-23 15:30] LABS: Iron 99.0 ug/dL (50.0-170.0)
[2025-04-23 15:46] LABS: Ferritin 337.0 ng/mL (8.0-252.0); Folate 13.70 ng/mL (8.60-58.90)
[2025-04-24 02:54] LABS: Vitamin B12 232 pg/mL (232-1245)
== END 2025-04-23 14:35 | disposition home or self-care (01) ==
LOC: LAB 14:35
PROVIDERS: PCP Family Medicine; Visit Provider Family Medicine
DX: D53.9 Nutritional anemia, unspecified (principal)
CPT/HCPCS: 36415; 82607; 82728; 82746; 83540

== ENCOUNTER 2025-04-27 13:01 | Outpatient (OUT) | payer OTHER, SELFPAY ==
--- OUTSIDE RECORDS SUMMARY | 2025-04-27 13:09 | XMS_ITS | Clinical Summary ---
Author Organization [facility] Address [address] [place] [address] Care Team Providers Care Counseling Center Director Name Role Phone Jason Waite MD Primary Care Provider [phone] Allergies Active AllergyReactionsCriticalityNoted DateCommentsPenicillin G Sodium 11/20/2022 Other Reaction(s): Unknown Medications No known medications Family History Medical HistoryRelationNameCommentsBreast cancerMother's SisterBreast cancer SisterCervical cancerSisterRelationNameStatusCommentsMother's SisterSister Social History Tobacco UseTypesPacks/DayYears UsedDateSmoking Tobacco: NeverSmokeless Tobacco: Never Tobacco Cessation:Counseling Given: Not Answered Alcohol UseStandard Drinks/WeekCommentsNot Currently0 (1 standard drink = 0.6 oz pure alcohol)CommentsUnknownSex and Gender InformationValueDate Recorded Sex Assigned at BirthNot on fileLegal LjmRpmjno20/15/2023 8:23 PM EDTGender IdentityNot on fileSexual OrientationNot on file Last Filed Vital Signs Vital SignReadingTime TakenCommentsBlood Vzbvsbdt148/8207 2:35 PM EDT Pulse--Temperature--Respiratory Rate--Oxygen Saturation--Inhaled Oxygen Concentration--Socgwp90.7 kg (189 lb)11/20/2022 2:35 PM GKORjsnni988.3 cm (5' 3.5 )11/20/2022 2:35 PM EDTBody Mass Index32.9507 2:35 PM EDT Plan of Treatment Not on file Insurance Care Teams Team MemberRelationshipSpecialtyStart DateEnd Jason Waite MD PCP - GeneralFamily Medicine11/20/22
--- OUTSIDE RECORDS SUMMARY | 2025-04-27 13:09 | XMS_ITS | Clinical Summary ---
Author Organization [employer] [facility] tem Address [id number] [address] [place] [address] Care Team Providers Care Auto Body Mechanic Apprentice Name Role Phone No Pcp, No Pcp Primary Care Provider Unavailabl e Allergies Active AllergyReactionsCriticalityNoted DateCommentsPenicillin G Sodium 11/20/2022 Other Reaction(s): Unknown Medications No known medications Social History Tobacco UseTypesPacks/DayYears UsedDateSmoking Tobacco: Never AssessedChildcare AnswerDate XddunbfnCyyvztptjThqgjvb20/12/2019EmploymentAnswerDate Recorded NiyaracuycRdikjzh42/12/2019Hunger ScreeningAnswerDate RecordedWithin the past 12 months we worried whether our food would run out before we got money to buy more.Never True08/03/2023Within the past 12 months the food we bought just didn't last and we didn't have money to get more.Never True08/03/2023 CommentsNoSex and Gender InformationValueDate RecordedSex Assigned at BirthNot on fileLegal AubOunltc57/06/2015 11:43 AM EDTGender IdentityNot on fileSexual OrientationNot on file Last Filed Vital Signs Vital SignReadingTime TakenCommentsBlood Qhpinlcj173/8103 3:17 AM EDT Njuoi7657 3:17 AM QFWFtymlfdmqjq64 ??C (98.6 ??F)08/03/2023 3:17 AM EDT Respiratory Mumd185208/03/2023 3:17 AM EDTOxygen Jbnxedezbc33%08/03/2023 3:17 AM EDTInhaled Oxygen Concentration--Hoqjas64 kg (205 lb)08/03/2023 3:17 AM EDT Iglcsg735.6 cm (5' 6 )08/03/2023 3:17 AM EDTBody Mass Index33.0908/03/2023 3:17 AM EDT Plan of Treatment Not on file Medical Devices Not on file Insurance Care Teams Team MemberRelationshipSpecialtyStart DateEnd Date No Pcp, [place] [address] PCP - GeneralFadely Medicine08/03/23
== END 2025-04-27 13:02 | disposition home or self-care (01) ==
LOC: LAB 13:07
PROVIDERS: PCP Family Medicine; Visit Provider Family Medicine
DX: D53.9 Nutritional anemia, unspecified (principal)
CPT/HCPCS: 36415; 80053; 80061; 82607; 82728; 82746